=== PATIENT | female | born 1940 | race African-American/Black ===

== ENCOUNTER 2025-07-30 02:55 | Inpatient (IN) | payer OTHER, MEDICAID ==
[~2025-07-30] VITALS: Ht 170.2 cm; Wt 81.6 kg
[~2025-07-30 02:55] MED LIST: ATEN-42
[2025-07-30 03:03] VITALS: O2SAT 97
[2025-07-30] MEDS: SODIUM CHLORIDE 0.9% 1,000 ML IV ONE (04:48)
[2025-07-30 04:57] LABS: CREATININE 0.9 mg/dL (0.6-1.0); UREA NITROGEN BLOOD 20 mg/dL (9-23)
[2025-07-30 04:59] LABS: ASPARTATE AMINOTRANSFERASE 35 IU/L (<34); BILIRUBIN TOTAL 0.5 mg/dL (0.1-1.0); PROTEIN TOTAL 5.7 g/dL (6.0-8.3)
[2025-07-30 05:40] LABS: BASOPHILS % 0.3 % (0.0-2.0); EOSINOPHILS % 0.2 % (0.0-5.0); HEMATOCRIT. 34.0 % (36.0-48.0); HEMOGLOBIN. 11.0 g/dL (12.0-16.0); LYMPHOCYTES % 9.8 % (20.0-50.0); MEAN PLATELET VOLUME 8.4 fl (7.4-10.4); MONOCYTES % 8.5 % (2.0-8.0); NEUTROPHILS % 81.2 % (40.0-76.0); PLATELET 309 x1000/uL (130-400); RED BLOOD CELL COUNT 4.25 mill/uL (4.2-5.4); RED CELL DISTRIBUTION WIDTH 14.8 % (11.6-14.6)
[2025-07-30] MEDS: LIDOCAINE HCL/EPINEPHRINE 1%-EPI 1:100,000 20ML VIAL ONE (06:27)
[2025-07-30] MEDS: METRONIDAZOLE 500 MG PREMIX 100 ML IV NR (06:31)
[2025-07-30] MEDS: VANCOMYCIN 125MG/2.5ML ORAL SYR PO NR (06:34)
[2025-07-30] MEDS: LIDOCAINE HCL/EPINEPHRINE 1%-EPI 1:100,000 20ML VIAL INFIL NR (06:35)
[2025-07-30 08:00] VITALS: BP 119/60; PULSE 99; RESP 20; TEMP 35.8; O2SAT 97
[2025-07-30] MEDS ORDERED: T3 PO (09:51)
[2025-07-30] MEDS ORDERED: TUME1CAP (09:51)
[2025-07-30] MEDS ORDERED: ATOR40TA70 PO (09:51)
[2025-07-30] MEDS ORDERED: CYAN-117 (09:51)
[2025-07-30] MEDS ORDERED: HYDR25TA78 PO (09:51)
[2025-07-30] MEDS ORDERED: ASPI-1497 MT (09:51)
[2025-07-30] MEDS ORDERED: CHOL500051 (09:51)
[2025-07-30] MEDS ORDERED: AMLO-905 MT (09:51)
[2025-07-30] MEDS ORDERED: LOSA1TAB40 MT (09:51)
[2025-07-30 10:08] VITALS: BP 119/60; PULSE 99; RESP 20; TEMP 35.8064
[2025-07-30] MEDS ORDERED: ONDANSETRON HCL 4MG/2ML INJ IV PRN (11:00)
[2025-07-30 12:00] VITALS: BP 122/50; PULSE 97; RESP 20; TEMP 36.7; O2SAT 98
[2025-07-30] MEDS: ACETAMINOPHEN 325MG TABLET PO PRN (12:15)
[2025-07-30] MEDS: ENOXAPARIN 40MG/0.4ML SYR SUBCUT SCH (12:16)
[2025-07-30] MEDS ORDERED: NALOXONE HCL 0.4MG/ML VIAL IV PRN (13:45)
[2025-07-30] MEDS: POTASSIUM CHLORIDE 20MEQ TABLET SR PO SCH (14:16)
[2025-07-30] MEDS: ACETAMINOPHEN WITH CODEINE 300/30MG TABLET PO PRN (14:17)
[2025-07-30 16:00] VITALS: BP 133/61; PULSE 87; RESP 20; TEMP 36.7; O2SAT 98
[2025-07-30 20:00] VITALS: BP 117/53; PULSE 101; RESP 20; TEMP 36.8; O2SAT 98
[2025-07-31] VITALS: BP 122/80; PULSE 87; RESP 20; TEMP 36.7; O2SAT 98
[2025-07-31 04:00] VITALS: BP 138/63; PULSE 107; RESP 20; TEMP 37; O2SAT 97
[2025-07-31 07:51] LABS: BASOPHILS % 0.2 % (0.0-2.0); EOSINOPHILS % 1.5 % (0.0-5.0); HEMATOCRIT. 31.2 % (36.0-48.0); HEMOGLOBIN. 10.5 g/dL (12.0-16.0); LYMPHOCYTES % 11.3 % (20.0-50.0); MEAN PLATELET VOLUME 8.4 fl (7.4-10.4); MONOCYTES % 9.3 % (2.0-8.0); NEUTROPHILS % 77.7 % (40.0-76.0); PLATELET 289 x1000/uL (130-400); RED BLOOD CELL COUNT 3.92 mill/uL (4.2-5.4); RED CELL DISTRIBUTION WIDTH 14.9 % (11.6-14.6)
[2025-07-31 08:00] VITALS: BP 141/69; PULSE 82; RESP 18; TEMP 35.9; O2SAT 98
[2025-07-31 08:35] LABS: CREATININE 0.9 mg/dL (0.6-1.0); UREA NITROGEN BLOOD 19 mg/dL (9-23)
[2025-07-31 12:00] VITALS: BP 155/64; PULSE 81; RESP 18; TEMP 35.7; O2SAT 98
[2025-07-31 16:00] VITALS: BP 165/85; PULSE 116; RESP 18; TEMP 36.5; O2SAT 100
[2025-07-31 20:00] VITALS: BP 136/65; PULSE 91; RESP 16; TEMP 36.4; O2SAT 98
[2025-08-01] VITALS: BP 140/67; PULSE 103; RESP 19; TEMP 36.3; O2SAT 96
[2025-08-01 04:00] VITALS: BP 142/70; PULSE 95; RESP 18; TEMP 36.6; O2SAT 98
[2025-08-01 08:00] VITALS: BP 156/61; PULSE 78; RESP 18; TEMP 36.5; O2SAT 98
[2025-08-01 12:30] VITALS: BP 150/88; PULSE 63; RESP 18; TEMP 36.7; O2SAT 98
[2025-08-01 16:00] VITALS: BP 125/71; PULSE 75; RESP 18; TEMP 36.6; O2SAT 95
[2025-08-01 17:48] LABS: CLARITY URINE CLEAR (CLEAR); COLOR URINE YELLOW (YELLOW); GLUCOSE URINE NEGATIVE (NEGATIVE); KETONES URINE TRACE (NEGATIVE); LEUKOCYTE ESTERASE URINE 2+ (NEGATIVE); NITRITE URINE NEGATIVE (NEGATIVE); OCCULT BLOOD URINE NEGATIVE (NEGATIVE); PH URINE 5.5 (4.5-8.0); PROTEIN URINE TRACE (NEGATIVE); SPECIFIC GRAVITY URINE 1.017 (1.005-1.030); UROBILINOGEN URINE 0.2 E.U./dL (0.2-1.0)
[2025-08-01 17:53] LABS: BACTERIA URINE 1+; RBC URINE 0-2 /hpf (0-2); SQUAMOUS EPITHELIAL CELL URINE FEW /lpf (RARE/1+)
[2025-08-01 20:00] VITALS: BP 146/67; PULSE 108; RESP 18; TEMP 36.3; O2SAT 96
[2025-08-02] VITALS: BP 137/56; PULSE 80; RESP 18; TEMP 36.1; O2SAT 99
[2025-08-02 04:00] VITALS: BP 144/75; PULSE 109; RESP 19; TEMP 36.2; O2SAT 98
[2025-08-02 08:30] VITALS: BP 143/64; PULSE 86; RESP 18; TEMP 36.2; O2SAT 97
[2025-08-02 12:30] VITALS: BP 136/76; PULSE 102; RESP 18; TEMP 37.1; O2SAT 96
[2025-08-02 15:52] LABS: BASOPHILS % 0.4 % (0.0-2.0); EOSINOPHILS % 1.7 % (0.0-5.0); HEMATOCRIT. 31.1 % (36.0-48.0); HEMOGLOBIN. 10.3 g/dL (12.0-16.0); LYMPHOCYTES % 15.1 % (20.0-50.0); MEAN PLATELET VOLUME 8.0 fl (7.4-10.4); MONOCYTES % 9.9 % (2.0-8.0); NEUTROPHILS % 72.9 % (40.0-76.0); PLATELET 328 x1000/uL (130-400); RED BLOOD CELL COUNT 3.85 mill/uL (4.2-5.4); RED CELL DISTRIBUTION WIDTH 15.1 % (11.6-14.6)
[2025-08-02 16:00] VITALS: BP 152/72; PULSE 84; RESP 20; TEMP 36.1; O2SAT 97
[2025-08-02 16:05] LABS: CREATININE 0.8 mg/dL (0.6-1.0); UREA NITROGEN BLOOD 10 mg/dL (9-23)
[2025-08-02 17:32] VITALS: BP 152/72; PULSE 84; RESP 20; TEMP 97
[2025-08-26] MEDS ORDERED: SODI650T PO (17:12)
[2025-08-26] MEDS ORDERED: OMEP20CA14 MT (17:12)
[2025-08-26] MEDS ORDERED: APIX5TAB MT (17:12)
== END 2025-08-02 19:58 | disposition home or self-care (01) | DRG 391 ==
LOC: EDBD → ER 02:55 → 8WST 04:55 → EDBEDREQSVC 05:03 → EDBEDREQ 05:03 → EDBEDREQTM 05:03 → ENRESERV 05:40 → ER 06:05
PROVIDERS: ADMIT Internal Medicine; ATTEND Internal Medicine
DX: K52.9 Noninfective gastroenteritis and colitis, unspecified (principal); L89.213 Pressure ulcer of right hip, stage 3; L89.223 Pressure ulcer of left hip, stage 3; L89.623 Pressure ulcer of left heel, stage 3; L89.613 Pressure ulcer of right heel, stage 3; L89.523 Pressure ulcer of left ankle, stage 3; L89.513 Pressure ulcer of right ankle, stage 3; L89.150 Pressure ulcer of sacral region, unstageable; I10 Essential (primary) hypertension; F03.90 Unspecified dementia, unspecified severity, without behavioral disturbance, psychotic disturbance, mood disturbance, and anxiety; E87.6 Hypokalemia; D72.829 Elevated white blood cell count, unspecified; Z88.0 Allergy status to penicillin
CPT/HCPCS: 36415; 74176; 80048; 80053; 81003; 83605; 85025; 93005; 93970; 96360; 97162; 99285; A4606; J1650; J2004; J3373; J3490